=== PATIENT | female | born 1980 | race Caucasian/White ===

== ENCOUNTER 2020-07-04 14:13 | Emergency (ER) | payer OTHER ==
--- NOTE | 2020-07-04 14:36 | ER Document Report ---
ED Medical Screen (RME) - General Stated Complaint: CHEST TIGHTNESS/ PAIN - HPI Notes: 07/04/20 14:33 Rapid Medical Exam HPI: 40yo female presents to the ER w/ SOB, chest tightness, sore throat, myalgias, and fatigue X 2 days. no cough, fever, dysuria, n/v/d, chest pain, or loss of taste/smell. denies hx of pe/dvt or asthma. 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 no known covid exposures. Physical Exam: GENERAL: Well-appearing, well-nourished and in no acute distress. HEAD: Atraumatic, normocephalic. ENT: Moist mucous membranes. RESP: Respirations even and unlabored CV- Regular rate. NEURO: No focal neurological deficits. Moves all extremities spontaneously and on command. My involvement in this patients care was limited to a rapid initial assessment. A comprehensive ED assessment and evaluation of the patient, analysis of test results, treatment, and completion of the medical decision making process will be performed by other ER providers. - Related Data Allergies/Adverse Reactions: No Known Allergies Allergy (Verified 07/04/20 14:33) Physical Exam - Vital signs Vitals: Temp Pulse Resp BP Pulse Ox 98.1 F 84 16 154/88 H 100 07/04/20 14:26 07/04/20 14:26 07/04/20 14:26 07/04/20 14:26 07/04/20 14:26 Course - Vital Signs Vital signs: Temp Pulse Resp BP Pulse Ox 98.1 F 84 16 154/88 H 100 07/04/20 14:26 07/04/20 14:26 07/04/20 14:26 07/04/20 14:26 07/04/20 14:26
--- NOTE | 2020-07-04 14:46 | ER Document Report ---
ED Cardiac - General Chief Complaint: Chest Tightness Stated Complaint: CHEST TIGHTNESS/ PAIN Time Seen by Provider: 07/04/20 14:46 Primary Care Provider: BRISEYDA ORDONEZ MD [Primary Care Provider] - Follow up as needed Mode of Arrival: Ambulatory Information source: Patient - HPI Positive cardiac history: No Notes: 40-year-old female presents to ED for evaluation of cough and cold symptoms starting within the last several days. 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 Patient reports that she does not believe she has been in direct contact with them however she is uncertain. She reports that she has some shortness of breath and a dry cough. She denies any fevers or chills. Denies abdominal pain. Denies dysuria or hematuria. Denies any chest discomfort. Patient reports that she does not have any underlying cardiac or lung pathology. Patient denies other complaints at this time. - Related Data Allergies/Adverse Reactions: No Known Allergies Allergy (Verified 07/04/20 14:33) Home Medications: Levothyroxine, control, Omeprazole Past Medical History - Social History Smoking Status: Never Smoker Frequency of alcohol use: Occasional Drug Abuse: None Family History: None Review of Systems - Review of Systems Notes: REVIEW OF SYSTEMS: CONSTITUTIONAL : Denies fever, chills, or sweats. Denies recent illness. EENT: Denies eye, ear, throat, or mouth pain or symptoms. Denies nasal or sinus congestion. CARDIOVASCULAR: Denies chest pain. RESPIRATORY: + cough, cold, or chest congestion. + shortness of breath with cough, difficulty breathing, denies wheezing. GASTROINTESTINAL: Denies abdominal pain. Denies nausea, vomiting, or diarrhea. Denies constipation. Last BM: GENITOURINARY: Denies difficulty urinating, painful urination, burning, frequency, or blood in urine. FEMALE GENITOURINARY: Denies vaginal bleeding, abnormal or irregular periods. LMP: MUSCULOSKELETAL: Denies neck or back pain or joint pain or swelling. SKIN: Denies rash or skin lesions. HEMATOLOGIC : Denies easy bruising or bleeding. LYMPHATIC: Denies swollen, enlarged glands. NEUROLOGICAL: Denies altered mental status or loss of consciousness. Denies headache. Denies weakness or paralysis or loss of use of either side. Denies problems with gait or speech. Denies sensory or motor loss. PSYCHIATRIC: Denies anxiety or stress or depression. ALL OTHER SYSTEMS REVIEWED AND NEGATIVE. Physical Exam - Vital signs Vitals: Temp Pulse Resp BP Pulse Ox 98.1 F 84 16 154/88 H 100 07/04/20 14:26 07/04/20 14:26 07/04/20 14:26 07/04/20 14:26 07/04/20 14:26 General: Alert and oriented x3. Sitting uncomfortably in a stretcher. Skin: Intact without any jaundice, pallor, or erythema. Warm and dry. HEENT: Normocephalic, atraumatic. Pupils are equal round reactive to light and accommodation. Extraocular movements are intact. TMs without erythema or bulging. Canals are clear. Nares patent without any discharge. Teeth in good condition. Pharynx without erythema, edema, or exudates. No tonsillar enlargement. Uvula is midline. Airway is patent. Neck: Supple with no lymphadenopathy. Full range of motion. Heart: Regular rate and rhythm. S1,S2. No murmurs, rubs, or gallops. Tenderness to palpation along the anterior chest. Lungs: Clear to auscultation bilaterally. No wheezes, rhonchi, rales. Equal chest expansion. No retractions. Abdomen: Soft, nontender to palpation, nondistended. Positive bowel sounds in all 4 quadrants. No hepatosplenomegaly. No masses. No CVA tenderness bilaterally. Neuro: GCS 15. Moving all extremities without discomfort. Extremities: No calf tenderness or edema. No cyanosis or clubbing. Radial and pedal pulses 2+ bilaterally. Brisk capillary refill. Psych: Mood and affect appropriate. Course - Re-evaluation Re-evalutation: 07/04/20 15:18 40-year-old female presents to ED for evaluation of possible Covid. Patient notes that she may have been exposed to people at work. Patient reports some shortness of breath and cough. On exam, patient's vital signs are reassuring and she has no evidence of tachycardia, hypoxia, or tachypnea. Patient evaluated with a chest x-ray which was read by radiology and reviewed by myself to be negative for acute cardiopulmonary pathology. Influenza testing is negative for both influenza a and B. Patient was evaluated with COVID testing will take 3 to 5 days to come back. Patient will remain as a person under investigation until this returns. Patient is advised to remain quarantined at home. Started on ventolin and prednisone for symptomatic management. Urine was concerning for infection and cultured patient declines antibiotics at this time due to her being asymptomatic. Patient understands indications to return to the ER. Patient is agreeable with this plan. 07/04/20 20:24 - Vital Signs Vital signs: Temp Pulse Resp BP Pulse Ox 98.2 F 72 18 152/92 H 98 07/04/20 17:00 07/04/20 17:00 07/04/20 17:00 07/04/20 17:00 07/04/20 17:00 - Laboratory Laboratory results interpreted by me: 07/04/20 14:45 Ur Leukocyte Esterase TRACE H - Diagnostic Test Radiology reviewed: Image reviewed Radiology results interpreted by me: 07/04/20 20:27 Needed for acute pathology on chest x-ray Discharge - Discharge Clinical Impression: Person under investigation for COVID-19 Condition: Stable Disposition: HOME, SELF-CARE Prescriptions: Albuterol Sulfate [Ventolin Hfa 8 gm Mdi] 2 puff IH Q6HP PRN #1 inhaler PRN Reason: Prednisone 60 mg PO DAILY #30 tablet Forms: Return to Work Referrals: BRISEYDA ORDONEZ MD [Primary Care Provider] - Follow up as needed
[2020-07-04 14:59] LABS: APPEARANCE,URINE CLEAR; BILIRUBIN,URINE NEGATIVE (NEGATIVE); COLOR,URINE YELLOW; GLUCOSE, URINE NEGATIVE (NEGATIVE); KETONES,URINE NEGATIVE (NEGATIVE); LEUKOCYTE ESTERASE,URINE TRACE (NEGATIVE); NITRITE,URINE NEGATIVE (NEGATIVE); PROTEIN,URINE NEGATIVE (NEGATIVE); URINE SPECIFIC GRAVITY 1.018; UROBILINOGEN,URINE NEGATIVE mg/dL (<2.0)
--- NOTE | 2020-07-04 15:54 | RADIOLOGY REPORT (SQ) ---
EXAM DESCRIPTION: CHEST SINGLE VIEW IMAGES COMPLETED DATE/TIME: 07/04/2020 3:42 pm REASON FOR STUDY: sob COMPARISON: None. NUMBER OF VIEWS: One view. TECHNIQUE: Single frontal radiographic view of the chest acquired. LIMITATIONS: None. FINDINGS: LUNGS AND PLEURA: Low lung volumes with mild resultant bronchovascular crowding. No focal pulmonary consolidation, pleural effusion, or pneumothorax. MEDIASTINUM AND HILAR STRUCTURES: No masses. Contour normal. HEART AND VASCULAR STRUCTURES: Heart normal in size. Normal vasculature. BONES: No acute findings. HARDWARE: None in the chest. OTHER: No other significant finding. IMPRESSION: Hypoventilated exam without evidence of acute pulmonary process. TECHNICAL DOCUMENTATION: JOB ID: [id number] 2010 [employer]- All Rights Reserved Reading location - IP/workstation name: [email or web address]
[2020-07-04 16:04] LABS: A TYPE INFLUENZA AG NEGATIVE (NEGATIVE); B INFLUENZA AG NEGATIVE (NEGATIVE)
[2020-07-04 17:32] VITALS: BP 152/92
--- NOTE | 2020-07-05 08:08 | EKG REPORT ---
SEVERITY:- NORMAL ECG - SINUS RHYTHM : Confirmed by: Davion Olivares 05-Jul-2020 08:07:06
== END 2020-07-04 17:32 | disposition home or self-care (01) ==
LOC: ER 14:13
DX: R07.89 Other chest pain (principal); R06.02 Shortness of breath; J02.9 Acute pharyngitis, unspecified; M79.10 Myalgia, unspecified site; Z20.828 Contact with and (suspected) exposure to other viral communicable diseases; Z79.3 Long term (current) use of hormonal contraceptives
CPT/HCPCS: 93005; 99285; 81025; 81001; 87804; 71045; 93010; U0003; C9803; 87635

== ENCOUNTER 2020-07-11 19:00 | Emergency (ER) | payer OTHER ==
[2020-07-11] MEDS ORDERED: IPRATROPIUM/ALBUTEROL 0.5-2.5 MG/3 ML AMPUL NEB ONE (20:09)
--- NOTE | 2020-07-11 20:18 | ER Document Report ---
ED Respiratory Problem - General Chief Complaint: Shortness Of Breath Stated Complaint: SHORTNESS OF BREATH Time Seen by Provider: 07/11/20 20:00 Primary Care Provider: BRISEYDA ORDONEZ MD [Primary Care Provider] - Follow up as needed - HPI Notes: Patient is a 40 y/o female with no medical hx who presents with shortness of breath. Patient was seen in the emergency department one week ago for the same symptoms. COVID and influenza swabs were done which were both negative. Patient was discharged home with an albuterol inhaler and prescription for prednisone. She states the albuterol inhaler has been providing relief but she continues to be short of breath. She also reports a sore throat. She denies fever, chest pain, cough and vomiting. - Related Data Allergies/Adverse Reactions: No Known Allergies Allergy (Verified 07/04/20 14:33) Past Medical History - General Information source: Patient - Social History Smoking Status: Unknown if Ever Smoked Family History: None GI Medical History: Reports: Hx Gastroesophageal Reflux Disease Past Surgical History: Reports: Hx Breast Surgery - reduction, Hx Section - x2, Hx Nose Surgery - up3 Review of Systems - Review of Systems Constitutional: No symptoms reported EENT: No symptoms reported Cardiovascular: No symptoms reported Respiratory: See HPI Gastrointestinal: No symptoms reported Genitourinary: No symptoms reported Female Genitourinary: No symptoms reported Musculoskeletal: No symptoms reported Skin: No symptoms reported Hematologic/Lymphatic: No symptoms reported Neurological/Psychological: No symptoms reported Physical Exam - Vital signs Vitals: Temp Pulse Resp BP Pulse Ox 98.0 F 95 20 146/90 H 99 07/11/20 19:21 07/11/20 19:21 07/11/20 19:21 07/11/20 19:21 07/11/20 19:21 - Notes Notes: PHYSICAL EXAMINATION: VITALS: Vitals reviewed and within normal limits. GENERAL: Well-appearing, well-nourished and in no acute distress. HEAD: Atraumatic, normocephalic. EYES: Pupils equal, round, and reactive to light, extraocular movements intact, sclera anicteric, conjunctiva are normal. ENT: Nares patent. Moist mucous membranes. Oropharynx clear erythemaous without exudates. NECK: Normal range of motion, supple without lymphadenopathy. LUNGS: Breath sounds clear to auscultation bilaterally and equal. No wheezes, rales, or rhonchi. HEART: Regular, rate, and rhythm without murmurs. EXTREMITIES: Normal range of motion, no pitting or edema. No cyanosis. NEUROLOGICAL: No focal neurological deficits. Moves all extremities spo ntaneously and on command. PSYCH: Normal mood, normal affect. SKIN: Warm, Dry, normal turgor, no rashes or lesions noted. Course - Re-evaluation Re-evalutation: Patient is a 40 y/o female with no medical hx who presents with shortness of breath. Patient was seen in the emergency department one week ago for the same symptoms. COVID and influenza were both negative. Vitals signs are within normal limits. On exam, lungs are clear to auscultation bilaterally. Rapid strep is negative. Chest XR negative. Patient noted significant improvement after breathing treatment. As patient has had improvement with albuterol and duoneb breathing treatment, I believe her symptoms are due to asthma. I do not suspect an acute alternative pathology at this time based on history and exam including acute pulmonary embolus, ACS, pneumothorax, or aortic dissection. I recommend she follow up with her primary care provider for further evaluation and testing for asthma diagnosis. Patient understands and is in agreement with the plan. No steroids given today as she just completed a course this week. Return precautions given. Patient will be discharged home. - Vital Signs Vital signs: Temp Pulse Resp BP Pulse Ox 98.2 F 99 14 132/99 H 100 07/11/20 22:26 07/11/20 22:26 07/11/20 22:26 07/11/20 22:26 07/11/20 22:26 - Laboratory Results Critical Laboratory Results Reviewed: No Critical Results - Radiology Results Critical Radiology Results Reviewed: No Critical Results - EKG Interpretation by Me Additional EKG results interpreted by me: Sinus rhythm with a rate of 97. QTc 442. Normal axis. No T wave inversions or ST segment changes in consecutive leads. Discharge - Discharge Clinical Impression: Shortness of breath, Asthma exacerbation, mild Condition: Stable Disposition: HOME, SELF-CARE Additional Instructions: Asthma You have been diagnosed as having asthma. This is a condition where there is episodic tightness in the bronchial tubes. Allergies, infections, and polluted or cold air may be contributing factors. Emergency treatment of a severe asthma attack may include adrenaline shots, or bronchodilator aerosol. You may feel lightheaded, have a decreased exercise tolerance and a rapid pulse for an hour or two. Rest and get plenty of fluids. Home treatment of asthma requires bronchodilator drugs. These can be administered by injection, inhalation, or by mouth. Antibiotics and corticosteroids may be required for some patients. You should avoid chemical fumes, dusts, pollens, and exercising in very cold or dry air. If you smoke, stop!! If you develop a fever, increased wheezing, chest pain, or severe shortness of breath, you should contact the doctor immediately Referrals: BRISEYDA ORDONEZ MD [Primary Care Provider] - Follow up as needed
--- NOTE | 2020-07-11 21:02 | RADIOLOGY REPORT (SQ) ---
EXAM DESCRIPTION: XR CHEST 1 VIEW COMPLETED DATE/TME: 07/11/2020 20:30 CLINICAL HISTORY: 40 years, Female, shortness of breath COMPARISON: July 04, 2020. NUMBER OF VIEWS: 1 TECHNIQUE: Single frontal view of the chest was obtained LIMITATIONS: None. FINDINGS: The heart size is normal. Lungs are clear. There is no evidence of pleural effusion or pneumothorax. No definite acute bony abnormality is seen. IMPRESSION: No acute abnormality as above. copyright 2010 [employer]- All Rights Reserved
[2020-07-11 22:27] VITALS: BP 132/99
--- NOTE | 2020-07-12 00:18 | EKG REPORT ---
SEVERITY:- NORMAL ECG - SINUS RHYTHM : Confirmed by: Davion Olivares 12-Jul-2020 00:16:52
== END 2020-07-11 22:27 | disposition home or self-care (01) ==
LOC: ER 19:00
DX: J45.901 Unspecified asthma with (acute) exacerbation (principal); J02.9 Acute pharyngitis, unspecified; R06.02 Shortness of breath
CPT/HCPCS: 71045; 87070; 87880; 93005; 93010; 94640; 99285